=== PATIENT | female | born 1990 | race Caucasian/White ===

== ENCOUNTER 2021-09-02 09:09 | Outpatient (REF) | payer MEDICARE, MEDICAID, SELFPAY ==
[2021-09-02 09:35] LABS: MANUAL DIFF FLAG NO
[2021-09-02 09:57] LABS: Basophils Absolute Auto 0.1 X10*3/uL (0.0-0.2); Basophils Percent Auto 0.6 % (0-2); Eosinophils Absolute Auto 0.1 X10*3/uL (0.0-0.4); Eosinophils Percent Auto 1.3 % (0-4); Hematocrit 38.6 % (37.0-47.0); Hemoglobin 12.1 g/dl (12.0-16.0); Imm Gran Abs Auto 0.04 X10*3/uL (0.00-0.03); Imm Gran Pct Auto 0.5 % (0.0-0.4); Lymphocytes Absolute Auto 2.5 X10*3/uL (1.2-4.9); Lymphocytes Percent Auto 28.3 % (20-40); Mean Corpuscular HGB Conc 31.3 g/dl (31.0-35.0); Mean Corpuscular Hemoglobin 26.3 pg (27.0-33.0); Mean Corpuscular Volume 83.9 fL (80.0-98.0); Mean Platelet Volume 9.7 fL (9.4-12.3); Monocytes Absolute Auto 0.7 X10*3/uL (0.1-1.2); Monocytes Percent Auto 8.2 % (2-11); Neutrophils Absolute Auto 5.4 x10*3/uL (2.0-8.3); Neutrophils Percent Auto 61.1 % (45-73); Platelet Count 388 X10*3/uL (160-400); Red Cell Distribution Width 14.3 % (11.0-16.0); White Blood Count 8.8 X10*3/uL (4.8-10.8)
[2021-09-02 10:31] LABS: Alanine Aminotransferase 31 U/L (0-31); Alkaline Phosphatase 110 U/L (39-117); Anion Gap 12 (12-20); Aspartate Amino Transferase 16 U/L (5-31); Bilirubin Total 0.6 mg/dL (0.0-1.0); Blood Urea Nitrogen 9 mg/dL (9-16); Calcium 9.5 mg/dL (8.4-10.2); Carbon Dioxide 26 mmol/L (22-29); Chloride 105 mmol/L (96-108); Cholesterol 178 mg/dL; Estimated Glomerular Filt Rate > 60; Glucose Fasting 94 mg/dL (60-99); HDL Cholesterol 37 mg/dL; LDL Cholesterol Calculated 127 mg/dl; Potassium 4.4 mmol/L (3.3-5.1); Sodium 139 mmol/L (135-145); Triglycerides 73 mg/dL
[2021-09-02 10:53] LABS: TSH reflex Free T4 1.01 uIU/mL (0.32-4.0)
== END 2021-09-02 09:10 | disposition home or self-care (01) ==
LOC: HO.LAB 09:09
PROVIDERS: PCP Nurse Practitioner Family; Visit Provider Nurse Practitioner Family
DX: I10 Essential (primary) hypertension (principal); E78.00 Pure hypercholesterolemia, unspecified; F41.8 Other specified anxiety disorders; Z76.89 Persons encountering health services in other specified circumstances; Z87.898 Personal history of other specified conditions
CPT/HCPCS: 36415; 80053; 80061; 84443; 85025

== ENCOUNTER 2021-11-14 06:23 | Outpatient (REF) | payer MEDICARE, MEDICAID, SELFPAY ==
--- NOTE | 2021-11-14 06:15 | EEG_ITS ---
The waking background activity consists of 11 hertz posterior alpha frequency of moderate voltage intermixed anteriorly with low-voltage fast frequencies. Superimposed moderate voltage beta frequencies of 16-20 hertz are seen. Throughout the record, there are frequent paroxysmal discharges with spike wave discharges occurring in a generalized distribution with frontal accentuation and a 3 hertz to 3.5 hertz frequency. These bursts last from 1 to 3 seconds without any clinical symptoms. Paroxysmal discharges seen during both sleep and waking state. Photic stimulation is without activation. Hyperventilation was omitted. IMPRESSION: This is an abnormal EEG due to frequent generalized seizure discharges occurring in the bifrontal distribution with generalized spread. This EEG correlates with a generalized seizure disorder. MD CARLOS Anderson/MONSTER / [id number]
== END 2021-11-14 06:24 | disposition home or self-care (01) ==
LOC: HO.NEURO 06:23
PROVIDERS: PCP Nurse Practitioner Family; Visit Provider Nurse Practitioner Family
DX: Z87.898 Personal history of other specified conditions (principal)
CPT/HCPCS: 95819

== ENCOUNTER 2022-09-04 09:30 | Outpatient (REF) | payer MEDICARE, MEDICAID, SELFPAY ==
[2022-09-04 10:01] LABS: MANUAL DIFF FLAG NO
[2022-09-04 10:40] LABS: Basophils Absolute Auto 0.1 X10*3/uL (0.0-0.2); Basophils Percent Auto 0.6 % (0-2); Eosinophils Absolute Auto 0.2 X10*3/uL (0.0-0.4); Hematocrit 39.2 % (37.0-47.0); Hemoglobin 12.5 g/dl (12.0-16.0); Imm Gran Abs Auto 0.02 X10*3/uL (0.00-0.03); Imm Gran Pct Auto 0.2 % (0.0-0.4); Lymphocytes Absolute Auto 2.8 X10*3/uL (1.2-4.9); Lymphocytes Percent Auto 34.5 % (20-40); Mean Corpuscular HGB Conc 31.9 g/dl (31.0-35.0); Mean Corpuscular Hemoglobin 27.8 pg (27.0-33.0); Mean Corpuscular Volume 87.1 fL (80.0-98.0); Mean Platelet Volume 10.8 fL (9.4-12.3); Monocytes Absolute Auto 0.8 X10*3/uL (0.1-1.2); Monocytes Percent Auto 10.3 % (2-11); Neutrophils Absolute Auto 4.2 x10*3/uL (2.0-8.3); Neutrophils Percent Auto 52.4 % (45-73); Platelet Count 301 X10*3/uL (160-400); Red Cell Distribution Width 13.4 % (11.0-16.0); White Blood Count 8.1 X10*3/uL (4.8-10.8)
[2022-09-04 11:31] LABS: Alanine Aminotransferase 19 U/L (0-31); Alkaline Phosphatase 93 U/L (39-117); Anion Gap 14 (12-20); Aspartate Amino Transferase 14 U/L (5-31); Bilirubin Total 0.6 mg/dL (0.0-1.0); Blood Urea Nitrogen 9 mg/dL (9-16); Calcium 9.3 mg/dL (8.4-10.2); Carbon Dioxide 26 mmol/L (22-29); Chloride 105 mmol/L (96-108); Cholesterol 186 mg/dL; Estimated Glomerular Filt Rate > 60; Glucose Random 87 mg/dL (60-115); HDL Cholesterol 33 mg/dL; LDL Cholesterol Calculated 124 mg/dl; Potassium 4.9 mmol/L (3.3-5.1); Sodium 140 mmol/L (135-145); Total Protein 6.7 g/dL (6.5-8.0); Triglycerides 145 mg/dL
[2022-09-04 11:48] LABS: TSH reflex Free T4 1.61 uIU/mL (0.32-4.0)
== END 2022-09-04 09:31 | disposition home or self-care (01) ==
LOC: HO.LAB 09:30
PROVIDERS: PCP Nurse Practitioner Family; Visit Provider Nurse Practitioner Family
DX: Z13.29 Encounter for screening for other suspected endocrine disorder (principal); Z13.220 Encounter for screening for lipoid disorders; Z13.0 Encounter for screening for diseases of the blood and blood-forming organs and certain disorders involving the immune mechanism; E66.01 Morbid (severe) obesity due to excess calories
CPT/HCPCS: 36415; 80053; 80061; 84443; 85025

== ENCOUNTER → 2022-11-12 09:45 | Outpatient (BNVA) | payer MEDICARE, MEDICAID, SELFPAY | PROVIDERS: PCP Nurse Practitioner Family; Visit Provider Physician Assistant Surgical ==

== ENCOUNTER 2022-12-10 08:24 | Outpatient (AMB) | payer MEDICARE, MEDICAID, SELFPAY ==
--- NOTE | 2022-12-10 08:33 | MHC.OFFVISWM ---
Intake VS Expanded 12/10/22 08:38 Height 5 ft 3 in Weight 337 lb 12.8 oz BMI 59.8 BP 144/65 H Blood Pressure Location Rt brachial Blood Pressure Position Sitting Pulse 92 Pulse Source Pulse Oximeter Temp 97.4 F Temperature Source Temporal Artery Scan Pulse Oximetry 97 Oxygen Delivery Method Room Air Body Fat 171.2 Body Fat Percentage 50.7 Free Fat Mass 166.4 Muscle Mass 158.0 Visceral Mass 20.0 Water Mass 119.4 BMR 2,448 Intake Visit Reasons: (OV) [employer] SWL BMI 60.2 Allergies No Known Allergies [No Known Allergies*] Allergy (Verified 12/10/22 08:35) HPI HPI Comments History of Present Illness Details This is a 32year old woman who is here to start SWL program with SWL classes. Her goal is to lose about 200 lbs. She reports first being concerned about her weight over the last year. She has tried multiple methods of weight loss including dofferent diet apps without permanent results. She lives alone. She is unemployed, on disability due to seizures, she does drive. She wakes at: 7:30am bed at 11 pm. Breakfast: Gatorade in am with meds. skips breakfast every day. 10 am - coffee with cream and extra sugar - DD 1pm - another coffee 5pm- - another coffee Lunch: 12pm - Fast food every other day - whopper and fries and medium Sprite. OR chicken shani salad from pizzeria Dinner: skips dinner 2d/ week. If eats, rice/chicken or pork chops - never has vegetables - her mother cooks. water After dinner: nothing Other snacks: none Liquids: Soda every day, sweetened drinks every day Alcohol intake: 2 tiems per year, tobacco: none, marijuana: couple times per year Exercise: has PF membersip - went once so far. treadmill - speed 5-6, incline 0, 15 minutes - burned 6 calories Last mammogram: never Last pap smear: needs appointment control method:not needed DASHA: 2 ESS:2 GERD:0 QOL:69 PFS Medical History Cervical cancer screening declined Morbid obesity with BMI of 50.0-59.9, adult Surgical History H/O right knee surgery History of cholecystectomy Hx of tonsillectomy Family History Paternal Uncle Heart disease Maternal Aunt Depression Other Diabetes mellitus FH: mental illness Substance abuse Social History (Updated 09/04/22 @ 09:11 by LEONID Nieves) Housing: House Patient Tobacco Use Status: Never used Tobacco e-Cigarette/Vaping Use: Never Used Second Hand Smoke Exposure: No Substance Use Type: Marijuana service: No Current occupational status: disabled Current occupational exposures/hazards: No Cognitive needs: No Hearing needs: No Vision needs: No Physical Exam Vital Signs: Last Vital Signs Temp 97.4 F 12/10/22 08:38 Pulse 92 12/10/22 08:38 Pulse Ox 97 12/10/22 08:38 Oxygen Delivery Method Room Air 12/10/22 08:38 BMI result Body Mass Index 59.8 Const General: cooperative, no acute distress and well developed Nutritional Appearance: obese Orientation/consciousness: patient oriented x3 HEENT Head: Yes normal to inspection Neck Neck: Yes normal visual inspection Thyroid: Thyroid normal Resp Effort & Inspection: normal respiratory effort Auscultation: clear to auscultation bilaterally Cardio Rate: regular rate Rhythm: regular rhythm Heart sounds: S1 normal heart sound present, S2 normal heart sound present and no murmurs GI Other: laparoscopic incisions upper abd Inspection: No distended and Yes obesity Palpation (GI): Soft to palpation, nontender and no guarding Skin General skin exam: no rashes or lesions noted and other (warm and dry) Wounds: no wounds Hair: normal Neuro General: patient oriented x3 Extrem General: Yes no pedal edema and Yes no calf tenderness Psych Attitude: cooperative Thought process: Normal thought process present Thought content: Normal thought content present Insight: Good insight present (Psych) Judgement: Good judgement present (Psych) Assessment & Plan Assessment & Plan (1) Morbid obesity with BMI of 50.0-59.9, adult: Code(s): E66.01 - Morbid (severe) obesity due to excess calories; Z68.43 - Body mass index [BMI] 50.0-59.9, adult Plan: This is a 32 yo woman with morbid obesity and epilepsy who will start SWL program to prepare for bariatric surgery. Blood work, h pylori , CXR, ECG, Abd ULS and UGI have been ordered. She is being scheduled for RD and BH initial consultations. She will start SWL classes and watch at 3 classes before her next appt with Enma. Decrease sodium intake due to elevated BP. 1. Adequate sleep of 8 hours per night discussed 2. Healthy meal plan - stop skipping meals and stop all sweetened drinks, stop ALL fast food, must start to eat vegetables All meals/MR's need to take 20 minutes to complete 9 am - 30 gram shake 10 am - coffee with 2% milk and no sugar 12 pm - 30 gram shake 3 pm- bar or yogurt 6 pm- dinner of 6 oz lean protein, 6 -8 oz vegetable, 1 serving fruit Exercise - Cardio 4 d week = treadmill at speed 3.0, incline 2 - 6 - to burn 350 calories The importance of avoiding and breast feeding for at least 18 months after bariatric surgery was discussed in the information session and was reinforced today. NEEDS feed adviser exam. Pt will purchase body composition analyzer (recommended list given to patient) and weight herself weekly. Next appt with me in 3 weeks. Text me with any questions and weekly weights. Patient is morbidly obese and is not considered stable at this time.?I spent a total of 60 minutes reviewing/updating records, examining the patient and counseling the patient on weight management as detailed above. (2) Pre-op evaluation: Code(s): Z01.818 - Encounter for other preprocedural examination (3) Hyperlipemia, fat-induced: Code(s): E78.49 - Other hyperlipidemia (4) Epilepsy: Code(s): G40.909 - Epilepsy, unspecified, not intractable, without status epilepticus Orders: Orders Vitamin B12 and Folate Today E66.01 - Morbid (severe) obesity due to excess calories, G40.909 - Epilepsy, unspecified, not intractable, without status epilepticus, Z01.818 - Encounter for other preprocedural examination, Z68.43 - Body mass index [BMI] 50.0-59.9, adult Comprehensive Met. Panel Today E66.01 - Morbid (severe) obesity due to excess calories, G40.909 - Epilepsy, unspecified, not intractable, without status epilepticus, Z01.818 - Encounter for other preprocedural examination, Z68.43 - Body mass index [BMI] 50.0-59.9, adult C Reactive Protein Today E66.01 - Morbid (severe) obesity due to excess calories, G40.909 - Epilepsy, unspecified, not intractable, without status epilepticus, Z01.818 - Encounter for other preprocedural examination, Z68.43 - Body mass index [BMI] 50.0-59.9, adult Ferritin Today E66.01 - Morbid (severe) obesity due to excess calories, G40.909 - Epilepsy, unspecified, not intractable, without status epilepticus, Z01.818 - Encounter for other preprocedural examination, Z68.43 - Body mass index [BMI] 50.0-59.9, adult Hemoglobin A1c Today E66.01 - Morbid (severe) obesity due to excess calories, G40.909 - Epilepsy, unspecified, not intractable, without status epilepticus, Z01.818 - Encounter for other preprocedural examination, Z68.43 - Body mass index [BMI] 50.0-59.9, adult Insulin Today E66.01 - Morbid (severe) obesity due to excess calories, G40.909 - Epilepsy, unspecified, not intractable, without status epilepticus, Z01.818 - Encounter for other preprocedural examination, Z68.43 - Body mass index [BMI] 50.0-59.9, adult IRON PROFILE Today E66.01 - Morbid (severe) obesity due to excess calories, G40.909 - Epilepsy, unspecified, not intractable, without status epilepticus, Z01.818 - Encounter for other preprocedural examination, Z68.43 - Body mass index [BMI] 50.0-59.9, adult Lipid Panel Today E66.01 - Morbid (severe) obesity due to excess calories, G40.909 - Epilepsy, unspecified, not intractable, without status epilepticus, Z01.818 - Encounter for other preprocedural examination, Z68.43 - Body mass index [BMI] 50.0-59.9, adult PTHI Today E66.01 - Morbid (severe) obesity due to excess calories, G40.909 - Epilepsy, unspecified, not intractable, without status epilepticus, Z01.818 - Encounter for other preprocedural examination, Z68.43 - Body mass index [BMI] 50.0-59.9, adult TSH reflex Free T4 Today E66.01 - Morbid (severe) obesity due to excess calories, G40.909 - Epilepsy, unspecified, not intractable, without status epilepticus, Z01.818 - Encounter for other preprocedural examination, Z68.43 - Body mass index [BMI] 50.0-59.9, adult Vitamin A Today E66.01 - Morbid (severe) obesity due to excess calories, G40.909 - Epilepsy, unspecified, not intractable, without status epilepticus, Z01.818 - Encounter for other preprocedural examination, Z68.43 - Body mass index [BMI] 50.0-59.9, adult Vitamin B1 Today E66.01 - Morbid (severe) obesity due to excess calories, G40.909 - Epilepsy, unspecified, not intractable, without status epilepticus, Z01.818 - Encounter for other preprocedural examination, Z68.43 - Body mass index [BMI] 50.0-59.9, adult Vitamin D 25-OH Total Today E66.01 - Morbid (severe) obesity due to excess calories, G40.909 - Epilepsy, unspecified, not intractable, without status epilepticus, Z01.818 - Encounter for other preprocedural examination, Z68.43 - Body mass index [BMI] 50.0-59.9, adult Zinc Today E66.01 - Morbid (severe) obesity due to excess calories, G40.909 - Epilepsy, unspecified, not intractable, without status epilepticus, Z01.818 - Encounter for other preprocedural examination, Z68.43 - Body mass index [BMI] 50.0-59.9, adult ECG 12 lead EKG Today E66.01 - Morbid (severe) obesity due to excess calories, G40.909 - Epilepsy, unspecified, not intractable, without status epilepticus, Z01.818 - Encounter for other preprocedural examination, Z68.43 - Body mass index [BMI] 50.0-59.9, adult FL upper GI w air Today E66.01 - Morbid (severe) obesity due to excess calories, G40.909 - Epilepsy, unspecified, not intractable, without status epilepticus, Z01.818 - Encounter for other preprocedural examination, Z68.43 - Body mass index [BMI] 50.0-59.9, adult Complete Blood Count Auto Diff Today E66.01 - Morbid (severe) obesity due to excess calories, G40.909 - Epilepsy, unspecified, not intractable, without status epilepticus, Z01.818 - Encounter for other preprocedural examination, Z68.43 - Body mass index [BMI] 50.0-59.9, adult H Pylori Breath Test Today E66.01 - Morbid (severe) obesity due to excess calories, G40.909 - Epilepsy, unspecified, not intractable, without status epilepticus, Z01.818 - Encounter for other preprocedural examination, Z68.43 - Body mass index [BMI] 50.0-59.9, adult US abdomen comp w elastography Today E66.01 - Morbid (severe) obesity due to excess calories, G40.909 - Epilepsy, unspecified, not intractable, without status epilepticus, Z01.818 - Encounter for other preprocedural examination, Z68.43 - Body mass index [BMI] 50.0-59.9, adult XR chest 2V Today E66.01 - Morbid (severe) obesity due to excess calories, G40.909 - Epilepsy, unspecified, not intractable, without status epilepticus, Z01.818 - Encounter for other preprocedural examination, Z68.43 - Body mass index [BMI] 50.0-59.9, adult Referrals Behavioral Health Referral E66.01 - Morbid (severe) obesity due to excess calories, G40.909 - Epilepsy, unspecified, not intractable, without status epilepticus, Z01.818 - Encounter for other preprocedural examination, Z68.43 - Body mass index [BMI] 50.0-59.9, adult Nutrition/Dietitian Referral E66.01 - Morbid (severe) obesity due to excess calories, G40.909 - Epilepsy, unspecified, not intractable, without status epilepticus, Z01.818 - Encounter for other preprocedural examination, Z68.43 - Body mass index [BMI] 50.0-59.9, adult Coding Level of Care Code New Pt Level 5 (30100) Diagnoses Morbid obesity with BMI of 50.0-59.9, adult E66.01; Z68.43 Pre-op evaluation Z01.818 Hyperlipemia, fat-induced E78.49 Epilepsy G40.909
[2022-12-10 08:38] VITALS: BP 144/65; PULSE 92; TEMP 36.3; O2SAT 97; BMI 59.8
== END 2022-12-10 09:33 | disposition home or self-care (01) ==
PROVIDERS: PCP Nurse Practitioner Family; Visit Provider Physician Assistant
DX: E66.01 Morbid (severe) obesity due to excess calories (principal); Z68.43 Body mass index [BMI] 50.0-59.9, adult; E78.49 Other hyperlipidemia; G40.909 Epilepsy, unspecified, not intractable, without status epilepticus; Z01.818 Encounter for other preprocedural examination
CPT/HCPCS: 99205

== ENCOUNTER → 2022-12-10 08:24 | Outpatient (BNVA) | payer MEDICARE, MEDICAID, SELFPAY | PROVIDERS: PCP Nurse Practitioner Family; Visit Provider Physician Assistant | DX: Z01.818 Encounter for other preprocedural examination (principal); E66.01 Morbid (severe) obesity due to excess calories; Z68.43 Body mass index [BMI] 50.0-59.9, adult; E78.49 Other hyperlipidemia; G40.909 Epilepsy, unspecified, not intractable, without status epilepticus; Z11.0 Encounter for screening for intestinal infectious diseases | CPT/HCPCS: 99202; 99211 ==

== ENCOUNTER 2022-12-12 08:52 | Outpatient (REF) | payer MEDICARE, MEDICAID, SELFPAY ==
[2022-12-12 16:20] LABS: H Pylori Breath Test Negative (Negative)
== END 2022-12-12 08:53 | disposition home or self-care (01) ==
LOC: HO.LNP 08:52
PROVIDERS: Visit Provider Physician Assistant
DX: Z01.818 Encounter for other preprocedural examination (principal); E66.01 Morbid (severe) obesity due to excess calories; Z68.43 Body mass index [BMI] 50.0-59.9, adult; G40.909 Epilepsy, unspecified, not intractable, without status epilepticus
CPT/HCPCS: 83013

== ENCOUNTER 2022-12-13 09:01 | Outpatient (REF) | payer OTHER, SELFPAY ==
[2022-12-13 09:24] LABS: MANUAL DIFF FLAG NO
[2022-12-13 10:26] LABS: Basophils Percent Auto 0.5 % (0-2); Eosinophils Absolute Auto 0.1 X10*3/uL (0.0-0.4); Eosinophils Percent Auto 1.6 % (0-4); Hematocrit 39.5 % (37.0-47.0); Hemoglobin 12.5 g/dl (12.0-16.0); Imm Gran Abs Auto 0.03 X10*3/uL (0.00-0.03); Imm Gran Pct Auto 0.4 % (0.0-0.4); Lymphocytes Absolute Auto 2.1 X10*3/uL (1.2-4.9); Lymphocytes Percent Auto 27.3 % (20-40); Mean Corpuscular HGB Conc 31.6 g/dl (31.0-35.0); Mean Corpuscular Hemoglobin 27.4 pg (27.0-33.0); Mean Corpuscular Volume 86.6 fL (80.0-98.0); Mean Platelet Volume 10.6 fL (9.4-12.3); Monocytes Absolute Auto 0.8 X10*3/uL (0.1-1.2); Monocytes Percent Auto 9.8 % (2-11); Neutrophils Absolute Auto 4.6 x10*3/uL (2.0-8.3); Neutrophils Percent Auto 60.4 % (45-73); Platelet Count 342 X10*3/uL (160-400); Red Blood Count 4.56 X10*6/uL (4.20-5.50); Red Cell Distribution Width 14.1 % (11.0-16.0); White Blood Count 7.7 X10*3/uL (4.8-10.8)
[2022-12-13 10:52] LABS: Estimated Average Glucose 91 mg/dL; Hemoglobin A1c % 4.8 %
[2022-12-13 11:12] LABS: Alanine Aminotransferase 54 U/L (0-31); Albumin Level 4.1 g/dL (3.5-5.0); Alkaline Phosphatase 82 U/L (39-117); Anion Gap 12 (12-20); Aspartate Amino Transferase 41 U/L (5-31); Bilirubin Total 0.7 mg/dL (0.0-1.0); Blood Urea Nitrogen 17 mg/dL (9-16); C Reactive Protein 1.72 mg/dL (< or = 0.50); Calcium 9.7 mg/dL (8.4-10.2); Carbon Dioxide 25 mmol/L (22-29); Chloride 106 mmol/L (96-108); Cholesterol 200 mg/dL; Estimated Glomerular Filt Rate > 60; Glucose Random 90 mg/dL (60-115); HDL Cholesterol 32 mg/dL; Iron 63 mcg/dL (30-160); LDL Cholesterol Calculated 138 mg/dl; Percent Iron Saturation 21 % (15-50); Potassium 3.8 mmol/L (3.3-5.1); Sodium 139 mmol/L (135-145); Total Iron Binding Capacity 306 mcg/dL (228-428); Total Protein 7.5 g/dL (6.5-8.0); Triglycerides 150 mg/dL; Unsaturated Iron Binding 243 ug/dL
[2022-12-13 11:35] LABS: Ferritin 78 ng/mL (10-122); Insulin 31 uU/mL (2-29); TSH reflex Free T4 1.35 uIU/mL (0.32-4.0)
[2022-12-13 11:57] LABS: Folate 12.2 ng/mL (> or = 4.0); Vitamin B12 426 pg/mL (200-900)
[2022-12-17 14:58] LABS: Calcium (PTHI) 9.5 mg/dL (8.6-10.2); PTHI 92 pg/mL (16-77)
[2022-12-18 14:58] LABS: Zinc 65 mcg/dL (60-130)
[2022-12-20 03:24] LABS: Vitamin A 36 mcg/dL (38-98)
[2022-12-21 11:12] LABS: Vitamin B1 7 nmol/L (8-30)
== END 2022-12-13 09:02 | disposition home or self-care (01) ==
LOC: HO.LAB 09:01
PROVIDERS: PCP Nurse Practitioner Family; Visit Provider Physician Assistant
DX: Z01.818 Encounter for other preprocedural examination (principal); E66.01 Morbid (severe) obesity due to excess calories; Z68.41 Body mass index [BMI] 40.0-44.9, adult; G43.909 Migraine, unspecified, not intractable, without status migrainosus
CPT/HCPCS: 36415; 80053; 80061; 82306; 82607; 82728; 82746; 83036; 83525; 83540; 83970; 84425; 84443; 84590; 84630; 85025; 86140

== ENCOUNTER 2022-12-18 10:17 | Outpatient (REF) | payer OTHER, SELFPAY ==
--- NOTE | ~2022-12-18 | XR_ITS ---
EXAMINATION: XR CHEST CLINICAL INFORMATION: Morbid/severe obesity due to excess calories COMPARISON: None available. TECHNIQUE: 2 views of the chest were obtained. FINDINGS: No significant abnormality is noted involving the heart, lungs, mediastinum, bony thorax or soft tissues. XR/XR chest 2V IMPRESSION: Unremarkable chest examination.
--- NOTE | 2022-12-18 10:22 | ECG_ITS ---
Test Reason : MORBID OBESITY Blood Pressure : / mmHG Vent. Rate : 094 BPM Atrial Rate : 094 BPM P-R Int : 148 ms QRS Dur : 078 ms QT Int : 362 ms P-R-T Axes : 031 009 014 degrees QTc Int : 452 ms Normal sinus rhythm Normal ECG When compared with ECG of 17-JUL-2013 01:28, No significant change was found Referred By: Sia Ashley Electronically Signed By:JANET MCGILL MD
== END 2022-12-18 10:18 | disposition home or self-care (01) ==
LOC: HO.XRAY 10:17
PROVIDERS: PCP Nurse Practitioner Family; Visit Provider Physician Assistant
DX: Z01.818 Encounter for other preprocedural examination (principal); E66.01 Morbid (severe) obesity due to excess calories; Z68.43 Body mass index [BMI] 50.0-59.9, adult; G40.909 Epilepsy, unspecified, not intractable, without status epilepticus
CPT/HCPCS: 71046; 93005

== ENCOUNTER → 2022-12-18 10:22 | Outpatient (BNV) | payer OTHER, SELFPAY | PROVIDERS: PCP Nurse Practitioner Family; Visit Provider Internal Medicine Cardiovascular Disease | DX: E66.01 Morbid (severe) obesity due to excess calories (principal) | CPT/HCPCS: 93010 ==

== ENCOUNTER 2022-12-19 09:09 | Outpatient (REF) | payer OTHER, SELFPAY ==
--- NOTE | ~2022-12-19 | US_ITS ---
EXAMINATION: US COMPLETE ABDOMEN WITH LIVER ELASTOGRAPHY CLINICAL INFORMATION: Obesity COMPARISON: Previous ultrasound June 2013 and liver MRI June 2013 TECHNIQUE: Real-time imaging of the abdominal viscera. Noninvasive ultrasound liver fibrosis assessment is performed using Fletcher ElastPQ point quantification shear wave elastography (2D-SWE) with a C5-2 MHz transducer. Multiple elastography samples are obtained. FINDINGS: PANCREAS: Normal. ABDOMINAL AORTA: The proximal, middle aortic segments are normal in caliber. The distal abdominal aorta is not well visualized. INFERIOR VENA CAVA: Visualized portions are normal. LIVER: Slightly enlarged echogenic liver. The liver is normal in contour. No focal lesion or intrahepatic biliary duct dilatation. The right lobe measures 18 cm in length. The left lobe measures 13 cm in length. Portal flow is normal/hepatopedal Shear wave liver elastography median stiffness is 1.23 m/s (reference: normal median stiffness is 1.3 m/s or less). IQR/median stiffness to assess sampling precision is 0.19 (reference: good quality data set is IQR/median stiffness of 0.15 or less). GALLBLADDER: Surgically removed. COMMON BILE DUCT: Normal in caliber measuring 0.4 cm in diameter. RIGHT KIDNEY: Normal. No hydronephrosis. No renal calculi or focal parenchymal lesions. The kidney measures 11 cm in maximum dimension. LEFT KIDNEY: Normal. No hydronephrosis. No renal calculi or focal parenchymal lesions. The kidney measures 11 cm in maximum dimension. SPLEEN: Normal. The spleen measures 12 cm in maximum dimension. FREE FLUID: None. US/US abdomen comp w elastography IMPRESSION: 1. Impression: Slightly enlarged echogenic liver probably representing fatty infiltration. Limited visualization of the distal abdominal aorta. 2. Liver elastography: Limited due to sampling error. REFERENCE: Society of Radiologists in Ultrasound Liver Stiffness Thresholds (2020): LIVER STIFFNESS THRESHOLDS: *Liver Stiffness equal or less than 1.3 m/s: High probability of being normal. *Liver Stiffness less than 1.7 m/s: In the absence of other known clinical signs, rules out compensated advanced chronic liver disease. *Liver Stiffness 1.7-2.1 m/s: Suggestive of compensated advanced chronic liver disease but need further test for confirmation. *Liver Stiffness over 2.1 m/s: Rules in compensated advanced chronic liver disease. *Liver Stiffness over 2.4 m/s: Suggestive of clinically significant portal hypertension. QUALITY OF DATA SET: *IQR/Median value equal or less than 0.15 implies a quality data set. *IQR/Median value over 0.15 implies a poor quality data set. SIGNIFICANT CHANGE FROM PRIOR EXAM: Significant change if liver stiffness measurement is 10% or greater from prior exam. OTHER CONSIDERATIONS: The stage of liver fibrosis may be overestimated in the setting of acute hepatitis, liver inflammation, elevated liver function tests, hepatic vascular congestion, obstructive cholestasis, non-fasting state, and infiltrative diseases such as amyloidosis and lymphoma. In some patients with NAFLD, the liver stiffness thresholds for compensated advanced chronic liver disease may be lower. In causes other than viral hepatitis and NAFLD, liver stiffness thresholds are not well established.
--- NOTE | ~2022-12-19 | FL_ITS ---
EXAMINATION: XR FLUOROSCOPY UPPER GI WITH AIR CLINICAL INFORMATION: Obesity COMPARISON: None available. TECHNIQUE: Upper GI was performed using thin and thick barium and effervescent granules FINDINGS: Esophageal motility is normal. No significant esophageal hernia or reflux. The stomach and duodenum are normal. No fold thickening, mass, ulcer or stricture. FLUOROSCOPY TIME: 0.3 minutes DAP: 4.7 wynn per centimeter squared. Total dose 15.5 mgy. 18 saved fluoroscopic images FL/FL upper GI w air IMPRESSION: Unremarkable examination.
== END 2022-12-19 09:10 | disposition home or self-care (01) ==
LOC: HO.US 09:09
PROVIDERS: PCP Nurse Practitioner Family; Visit Provider Physician Assistant
DX: Z01.818 Encounter for other preprocedural examination (principal); E66.01 Morbid (severe) obesity due to excess calories; G40.909 Epilepsy, unspecified, not intractable, without status epilepticus; Z68.43 Body mass index [BMI] 50.0-59.9, adult
CPT/HCPCS: 74246; 76705; 76981

== ENCOUNTER → 2022-12-19 09:10 | Outpatient (BNV) | payer OTHER, SELFPAY | PROVIDERS: PCP Nurse Practitioner Family; Visit Provider Radiology Diagnostic Radiology | DX: Z01.818 Encounter for other preprocedural examination (principal) | CPT/HCPCS: 74246 ==

== ENCOUNTER → 2022-12-24 10:17 | Outpatient (BNVA) | payer OTHER, SELFPAY | PROVIDERS: PCP Nurse Practitioner Family; Visit Provider Dietitian, Registered | DX: E66.9 Obesity, unspecified (principal) | CPT/HCPCS: 97802 ==

== ENCOUNTER 2022-12-26 13:53 | Outpatient (AMB) | payer MEDICARE, MEDICAID, SELFPAY ==
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
== END 2022-12-26 14:49 | disposition home or self-care (01) ==
PROVIDERS: PCP Nurse Practitioner Family; Visit Provider Counselor Mental Health
DX: F41.8 Other specified anxiety disorders (principal); G40.909 Epilepsy, unspecified, not intractable, without status epilepticus; E66.01 Morbid (severe) obesity due to excess calories; Z68.43 Body mass index [BMI] 50.0-59.9, adult
CPT/HCPCS: 90791

== ENCOUNTER → 2022-12-26 13:53 | Outpatient (BNVA) | payer MEDICARE, MEDICAID, SELFPAY | PROVIDERS: PCP Nurse Practitioner Family; Visit Provider Counselor Mental Health ==

== ENCOUNTER 2023-01-03 08:41 | Outpatient (AMB) | payer MEDICARE, MEDICAID, SELFPAY ==
--- NOTE | 2023-01-03 08:49 | MHC.OFFVISWM ---
Intake VS Expanded 01/03/23 09:01 Height 5 ft 3 in Weight 330 lb 12.8 oz BMI 58.6 BP 125/59 L Blood Pressure Location Rt brachial Blood Pressure Position Sitting Pulse 87 Pulse Source Pulse Oximeter Temp 97.8 F Temperature Source Temporal Artery Scan Pulse Oximetry 98 Oxygen Delivery Method Room Air Body Fat 163.2 Body Fat Percentage 49.3 Free Fat Mass 167.6 Muscle Mass 159.2 Visceral Mass 19.0 Water Mass 120.2 BMR 2,450 Intake Visit Reasons: (OV) F/U SWL Allergies No Known Allergies [No Known Allergies*] Allergy (Verified 01/03/23 08:58) HPI HPI Comments History of Present Illness Details This is the patients second appt for SWL. Starting weight was 339.8 lbs. TBWL is 9 lbs or 2.6% TBWL. 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 Meal plan: wakes up at 6:30 8am - Breakfast - skips 1 d/ week. Has an apple or a protein bar 12 pm - bowl of broccoli, water 3pm- protein shake- Premeir 6pm - chicken cesear salad from Pizza restaurant OR broccoli with air fried chicken coffee - once per week with [facility] only Exercise plan: bought treadmill for her home. treadmill -speed 2.5, incline 0- 2.5, over 30 minutes - 120 calories. UE, and abd exercises - 4-5 d/ week Pre op work up completed as follows: SWL classes - appts - cleared, Radha following up appts - follow up NOT scheduled H pylori - negative Labs - done, vitamin defic and elevated LFT's CXR and ECG - both normal ULS -liver steatosis , L 19cm, R 13 cms UGI - normal PFSH Medical History Cervical cancer screening declined Morbid obesity with BMI of 50.0-59.9, adult Surgical History H/O right knee surgery History of cholecystectomy Hx of tonsillectomy Family History Paternal Uncle Heart disease Maternal Aunt Depression Other Diabetes mellitus FH: mental illness Substance abuse Social History (Updated 09/04/22 @ 09:11 by LEONID Nieves) Housing: House Patient Tobacco Use Status: Never used Tobacco e-Cigarette/Vaping Use: Never Used Second Hand Smoke Exposure: No Substance Use Type: Marijuana service: No Current occupational status: disabled Current occupational exposures/hazards: No Cognitive needs: No Hearing needs: No Vision needs: No Assessment & Plan Assessment & Plan (1) Morbid obesity with BMI of 50.0-59.9, adult: Code(s): E66.01 - Morbid (severe) obesity due to excess calories; Z68.43 - Body mass index [BMI] 50.0-59.9, adult Plan: SWL followup, good start with 9 lbs or 2.6% TBWL. Needs many chagnes to meal plan and does not have great understanding yet of nutritional requirements. Stop skipping meals, add protien to all meal times, needs varitey of protiens and vegetables and to learn how to prepare them. She agreed that she can adhere to the following plan. 8am - shake 11am - bar 2ppm - shake 6pm- dinner - variety and protien 9pm - bar treadmill - 2.5, incline - 1 - 5, 300 calories Appt with Enma scheduled today, pt reminded to finish all SWL classes before this. Next appt with me in 3 weeks, texts encouraged Patient is morbidly obese and is not considered stable at this time. I spent 30minutes in total with patient reviewing/updating records, examining the patient and counseling the patient on weight management as detailed above. Coding Level of Care Code Est Pt Level 4 (42357) Diagnoses Morbid obesity with BMI of 50.0-59.9, adult E66.01; Z68.43
[2023-01-03 09:01] VITALS: BP 125/59; PULSE 87; TEMP 36.6; O2SAT 98; BMI 58.6
== END 2023-01-03 09:33 | disposition home or self-care (01) ==
PROVIDERS: PCP Nurse Practitioner Family; Visit Provider Physician Assistant
DX: E66.01 Morbid (severe) obesity due to excess calories (principal); Z68.43 Body mass index [BMI] 50.0-59.9, adult
CPT/HCPCS: 99214

== ENCOUNTER → 2023-01-03 08:41 | Outpatient (BNVA) | payer MEDICARE, MEDICAID, SELFPAY | PROVIDERS: PCP Nurse Practitioner Family; Visit Provider Physician Assistant | DX: E66.01 Morbid (severe) obesity due to excess calories (principal); Z68.43 Body mass index [BMI] 50.0-59.9, adult | CPT/HCPCS: 99212 ==

== ENCOUNTER 2023-01-23 12:56 | Outpatient (AMB) | payer MEDICARE, MEDICAID, SELFPAY ==
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
== END 2023-01-24 09:35 | disposition home or self-care (01) ==
PROVIDERS: PCP Nurse Practitioner Family; Visit Provider Counselor Mental Health
DX: F41.8 Other specified anxiety disorders (principal); G40.909 Epilepsy, unspecified, not intractable, without status epilepticus; E66.01 Morbid (severe) obesity due to excess calories; Z68.43 Body mass index [BMI] 50.0-59.9, adult
CPT/HCPCS: 90832

== ENCOUNTER → 2023-01-23 12:56 | Outpatient (BNVA) | payer MEDICARE, MEDICAID, SELFPAY | PROVIDERS: PCP Nurse Practitioner Family; Visit Provider Counselor Mental Health ==

== ENCOUNTER 2023-01-24 09:23 | Outpatient (AMB) | payer MEDICARE, MEDICAID, SELFPAY ==
--- NOTE | 2023-01-24 09:31 | MHC.OFFVISWM ---
Intake VS Expanded 01/24/23 09:37 Height 5 ft 3 in Weight 330 lb 9.6 oz BMI 58.6 Blood Pressure Location Rt brachial Blood Pressure Position Sitting Pulse 101 H Pulse Source Pulse Oximeter Temp 97.4 F Temperature Source Temporal Artery Scan Pulse Oximetry 95 Oxygen Delivery Method Room Air Body Fat 164.0 Body Fat Percentage 49.6 Free Fat Mass 166.4 Muscle Mass 158.0 Visceral Mass 19.0 Water Mass 119.4 BMR 2,436 Intake Visit Reasons: (OV) F/U SWL Allergies No Known Allergies [No Known Allergies*] Allergy (Verified 01/03/23 08:58) HPI HPI Comments History of Present Illness Details [facility] follow up, IRON BENDER weight of 339.8 lbs, TBWL is 9 lbs . No further weight loss from last appt. Has n ot been able to follow meal plan due to personal stressors and loss of appetite due to depression. wakes at 6am - takes meds at 6:30am 6:30 am - 2 boiled eggs 10 am - shake 12:30 pm - bar 2:30 - shake 7pm - dinner- grilled chicken corn on the cob water. exercise - treadmill - was doing 4 d/ week - hurt her knee. speed 4.0, incline 3.5 for 2 hours - calories ? Has neurolgoy appt May 2023. Pre op work up completed as follows: [facility] classes -? 09/01 appts? - cleared, Radha? following up?on 02/13 appts - follow up scheduled for 02/04 H pylori - negative Labs - done, vitamin defic and elevated LFT's CXR and ECG - both normal ULS -liver steatosis , L 19cm, R 13 cms UGI - normal PFSH Medical History (Updated 01/24/23 @ 09:59 by Sia Ashley PA-C) Abnormal EEG Cervical cancer screening declined Morbid obesity with BMI of 50.0-59.9, adult Surgical History H/O right knee surgery History of cholecystectomy Hx of tonsillectomy Family History Paternal Uncle Heart disease Maternal Aunt Depression Other Diabetes mellitus FH: mental illness Substance abuse Social History (Reviewed 01/03/23 @ 08:58 by PAULO Lopez Housing: House Patient Tobacco Use Status: Never used Tobacco e-Cigarette/Vaping Use: Never Used Second Hand Smoke Exposure: No Substance Use Type: Marijuana service: No Current occupational status: disabled Current occupational exposures/hazards: No Cognitive needs: No Hearing needs: No Vision needs: No Physical Exam Vital Signs: Last Vital Signs Temp 97.4 F 01/24/23 09:37 Pulse 101 H 01/24/23 09:37 Pulse Ox 95 01/24/23 09:37 Oxygen Delivery Method Room Air 01/24/23 09:37 BMI result Body Mass Index 58.6 Assessment & Plan Assessment & Plan (1) Morbid obesity with BMI of 50.0-59.9, adult: Code(s): E66.01 - Morbid (severe) obesity due to excess calories; Z68.43 - Body mass index [BMI] 50.0-59.9, adult Plan: Pt is havign a difficult time presently, her therapist is on maternaity leave and she is appreciating appts with Radha - says it helps her. She is doing fine with her meal plan - I asked her to change times to t 6;30, 10:30. 1:30, 4 pma nd 7pm for better intervals between meals. To help her remember to take her meds - if she takes them bid with both of her meals at 6:30 am and 7 pm may help her ot remember. Exercise- she was doing much more than I suggested and she hurt her knee. I have asked her to follow my recommendations for now and we can increase over time when she is better conditioned. Treadmill - speed 3.0, incline 2- 7 no more than 45 minutes, daily. Follow up appts reviewed with er, pre op work up completed. We discussed how we are not in any freeman, nor shoudl she be. The most important thing now is for her ot learn to take good care of herself. Next appt with me in 3 weeks. Patient is morbidly obese and is not considered stable at this time. I spent 30minutes in total with patient reviewing/updating records, examining the patient and counseling the patient on weight management as detailed above. (2) Epilepsy: Code(s): G40.909 - Epilepsy, unspecified, not intractable, without status epilepticus Coding Level of Care Code Est Pt Level 4 (11471) Diagnoses Morbid obesity with BMI of 50.0-59.9, adult E66.01; Z68.43 Epilepsy G40.909
[2023-01-24 09:37] VITALS: PULSE 101; TEMP 36.3; O2SAT 95; BMI 58.6
== END 2023-01-24 10:04 | disposition home or self-care (01) ==
PROVIDERS: PCP Nurse Practitioner Family; Visit Provider Physician Assistant
DX: E66.01 Morbid (severe) obesity due to excess calories (principal); Z68.43 Body mass index [BMI] 50.0-59.9, adult; G40.909 Epilepsy, unspecified, not intractable, without status epilepticus
CPT/HCPCS: 99214

== ENCOUNTER → 2023-01-24 09:23 | Outpatient (BNVA) | payer MEDICARE, MEDICAID, SELFPAY | PROVIDERS: PCP Nurse Practitioner Family; Visit Provider Physician Assistant | DX: E66.01 Morbid (severe) obesity due to excess calories (principal); Z68.43 Body mass index [BMI] 50.0-59.9, adult; G40.909 Epilepsy, unspecified, not intractable, without status epilepticus | CPT/HCPCS: 99212 ==

== ENCOUNTER 2023-10-16 14:50 | Outpatient (AMB) | payer OTHER, MEDICAID, SELFPAY ==
--- NOTE | 2023-10-16 14:58 | MHC.PC.OV ---
Vital Signs 10/16/23 15:01 Height 5 ft 3 in Weight 340 lb 2 oz BMI 60.2 BP 130/72 Blood Pressure Location Lt brachial Position Sitting Pulse 99 Pulse Source Pulse Oximeter Pulse Oximetry (%) 97 Oxygen Delivery Method Room Air Intake Visit Reasons: establish care-former [facility] patient Intake Note: Patient is here today for a ALEXIA, possible PE. Support Representative Required: No Technician'S Helper: Not Required per policy Accompanied by: Self / Same As Patient Allergies No Known Allergies [No Known Allergies*] Allergy (Verified 10/29/23 15:53) Medication List - Last Reconciled 10/29/23 by Rodolfo Estevez MD divalproex 500 mg PO BID vitamin A palmitate 6,000 mcg (2 x 3,000 mcg (10,000 unit)) PO QWEEK 2 weeks Tobacco use date assessed: 10/16/23 Dental Screening Dental Screen Date: 10/16/23 Did you have a dental visit in the last 12 months?: No Did you have a dental problem in the last 6 months where you did not have access to dental care?: No Was dental information given to patient?: Patient has dentist HPI establish care-former [facility] patient HPI Details 32-year-old female presents to the office requesting an annual physical. [facility] Medical History Morbid obesity with BMI of 50.0-59.9, adult Cervical cancer screening declined Abnormal EEG Surgical History Hx of tonsillectomy H/O right knee surgery History of cholecystectomy Family History Paternal Uncle Heart disease Maternal Aunt Depression Other Diabetes mellitus FH: mental illness Substance abuse Social History Housing: House Alcohol intake: never Patient Tobacco Use Status: Never used Tobacco e-Cigarette/Vaping Use: Never Used Second Hand Smoke Exposure: No Substance Use Type: Marijuana service: No Current occupational status: disabled Current occupational exposures/hazards: No Cognitive needs: No Hearing needs: No Vision needs: No Questionnaire PHQ-9 Over the last 2 weeks, how often have you been bothered by any of the following problems? 1. Little interest or pleasure in doing things: not at all 2. Feeling down, depressed, or hopeless: not at all 3. Trouble falling or staying asleep, or sleeping too much: not at all 4. Feeling tired or having little energy: not at all 5. Poor appetite or overeating: not at all 6. Feeling bad about yourself - or that you are a failure or have let yourself or your family down: not at all 7. Trouble concentrating on things, such as reading the newspaper or watching television: not at all 8. Moving or speaking so slowly that other people could have noticed. Or the opposite - being so fidgety or restless that you have been moving around a lot more than usual: not at all 9. Thoughts that you would be better off or of hurting yourself in some way: not at all Total score: 0 Depression Screening Interpretation: Negative Depression Screening Done: Yes Source: Developed by Drs. Chad Gutierrez, Luda Smith, Johnathan Galeas and colleagues, with an educational alberto from [employer]. Thrive Questionnaire Date Thrive assessed: 10/16/23 I am a: Patient What is your living situation today?: I have a steady place to live Within the past 12 months, did the food you bought not last and you didn't have the money to get more?: Never true Within the past 12 months, did you worry whether your food would run out before you got money to buy more?: Never true Do you have trouble paying for medicines?: No Do you have trouble getting transportation to medical appointments?: No Do you have trouble paying your heating and electricity bill?: No Do you have trouble taking care of your child, family member or friend?: No Do you have trouble with day-to-day activities such as bathing, preparing meals, shopping, managing finances, etc.?: No Are you currently unemployed and looking for a job?: No Are you interested in more education?: No Currently or been in a relationship where the following occur: no concerns reported THRIVE Score: 0 AUDIT C Alcohol Use Questionnaire (AUDIT-C) 1. How often do you have a drink containing alcohol?: Never Total Score: 0 GABRIELA-7 AMB Questionnaire GABRIELA-7 Date GABRIELA - 7 assessed: 10/16/23 Feeling nervous, anxious, or on edge: 2 = More than half the days Not being able to stop or control worryin = Several days Worrying too much about different things: 1 = Several days Trouble relaxin = More than half the days Being so restless that it is hard to sit still: 0 = Not at all Becoming easily annoyed or irritable: 1 = Several days Feeling afraid as if something awful might happen: 0 = Not at all Total GABRIELA-7 score (0-4 normal; 5-9 mild; 10-14 moderate; 15-21 severe): 7 Source: Developed by Drs. Chad Gutierrez, Luda Smith, Johnathan Galeas and colleagues, with an educational alberto from [employer]. Physical exam (Primary Care) Vital Signs: Last Vital Signs Pulse 99 10/16/23 15:01 BP 130/72 10/16/23 15:01 Pulse Ox 97 10/16/23 15:01 Oxygen Delivery Method Room Air 10/16/23 15:01 BMI result Body Mass Index 60.2 BMI Assessment/Plan discussion: High (1 lb per week weight loss suggested.) BMI High, discussed plan: lifestyle, weight reduction and dietary Tobacco/Smoking Status: Tobacco use Status Tobacco use date assessed 10/16/23 10/16/23 15:08 Patient Tobacco Use Status Never used Tobacco 10/16/23 15:05 e-Cigarette/Vaping Use Never Used 10/16/23 15:05 PHQ-9: PHQ-9 Score PHQ-9: Total score 0 10/16/23 15:08 Depression Screening Interpretation: Negative Thrive Assessment: Date of Thrive Assessment Date Thrive assessed 10/16/23 10/16/23 15:08 Currently or been in a relationship where the following occur: no concerns reported Assessment and Plan Assessment & Plan (1) Epilepsy: Code(s): G40.909 - Epilepsy, unspecified, not intractable, without status epilepticus Plan: Continue current medications. (2) Morbid obesity with BMI of 50.0-59.9, adult: Code(s): E66.01 - Morbid (severe) obesity due to excess calories; Z68.43 - Body mass index [BMI] 50.0-59.9, adult Plan: Counseling on the importance of diet and exercise done. (3) Annual physical exam: Code(s): Z00.00 - Encounter for general adult medical examination without abnormal findings Plan: Blood work ordered. Will call with the results. Orders: Orders Thyroid Stimulating Hormone 10/17/23 G40.909 - Epilepsy, unspecified, not intractable, without status epilepticus Basic Metabolic Panel 10/17/23 G40.909 - Epilepsy, unspecified, not intractable, without status epilepticus Lipid Panel 10/17/23 G40.909 - Epilepsy, unspecified, not intractable, without status epilepticus Liver Panel 10/17/23 G40.909 - Epilepsy, unspecified, not intractable, without status epilepticus UA and rflx microscopic 10/17/23 G40.909 - Epilepsy, unspecified, not intractable, without status epilepticus Coding Level of Care Code Est Pt Prev Care 18-39y(41350) Diagnoses Epilepsy G40.909 Morbid obesity with BMI of 50.0-59.9, adult E66.01; Z68.43 Annual physical exam Z00.00
[2023-10-16 15:01] VITALS: BP 130/72; PULSE 99; O2SAT 97; BMI 60.2
== END 2023-10-16 15:55 | disposition home or self-care (01) ==
LOC: HO.HMGH 14:52
PROVIDERS: PCP Nurse Practitioner Family; Visit Provider Internal Medicine
DX: G40.909 Epilepsy, unspecified, not intractable, without status epilepticus (principal); E66.01 Morbid (severe) obesity due to excess calories; Z68.43 Body mass index [BMI] 50.0-59.9, adult; Z00.00 Encounter for general adult medical examination without abnormal findings
CPT/HCPCS: 99395

== ENCOUNTER 2023-10-17 09:37 | Outpatient (REF) | payer OTHER, SELFPAY ==
[2023-10-17 11:01] LABS: Alanine Aminotransferase 31 U/L (0-31); Albumin Level 3.8 g/dL (3.5-5.0); Alkaline Phosphatase 113 U/L (39-117); Anion Gap 13 (12-20); Aspartate Amino Transferase 14 U/L (5-31); Bilirubin Direct 0.1 mg/dL (0.0-0.5); Bilirubin Total 0.3 mg/dL (0.0-1.0); Blood Urea Nitrogen 8 mg/dL (9-16); Calcium 9.1 mg/dL (8.4-10.2); Carbon Dioxide 23 mmol/L (22-29); Chloride 108 mmol/L (96-108); Cholesterol 177 mg/dL (<200); Estimated Glomerular Filt Rate > 60; Glucose Random 114 mg/dL (60-115); HDL Cholesterol 33 mg/dL (>40); LDL Cholesterol Calculated 116 mg/dL (<100); Potassium 3.9 mmol/L (3.3-5.1); Sodium 140 mmol/L (135-145); Total Protein 7.2 g/dL (6.5-8.0); Triglycerides 144 mg/dL (<150)
[2023-10-17 11:44] LABS: Appearance Urine Cloudy; Color Urine Yellow; Glucose Urine UA Negative (Negative); Leukocyte Esterase Urine Trace (Negative); Nitrite Urine Negative (Negative); Specific Gravity - Urine 1.025 (1.005-1.025); UMIC TRIGGER UA YES; Urine Blood Negative (Negative); Urine Ketones Negative (Negative); Urine Protein Negative (Neg-Trace)
[2023-10-17 11:53] LABS: Bacteria Urine Trace (None Seen); Hyaline Casts Urine 0-2 /LPF (0-2); RBC Urine 0-2 /HPF (0-2); WBC Urine 0-5 /HPF (0-5)
== END 2023-10-17 09:38 | disposition home or self-care (01) ==
LOC: HO.LAB 09:37
PROVIDERS: PCP Internal Medicine; Visit Provider Internal Medicine
DX: G40.909 Epilepsy, unspecified, not intractable, without status epilepticus (principal)
CPT/HCPCS: 36415; 80048; 80061; 80076; 81001; 84443

== ENCOUNTER 2024-12-31 08:44 | Outpatient (AMB) | payer OTHER, SELFPAY ==
--- NOTE | 2024-12-31 08:46 | A.OFFVIS_ITS ---
Intake Visit Reasons: 6M /Sz Allergies No Known Allergies (No Known Allergies*) Allergy (Verified 12/31/24 08:52) Medication List - Last Reconciled 12/31/24 by Brooklyn Grover CNP divalproex 500 mg PO BID vitamin A palmitate 6,000 mcg (2 x 3,000 mcg (10,000 unit)) PO QWEEK 2 weeks HPI Comments Details: She was doing okay. No seizures or aura. No medication side effects. She was getting some occasional headaches, which seemed to be triggered by heat and humidity or bright lights. Some photophobia. No sonophobia, nausea, or vomiting. She was using Advil as needed which helped within 30 minutes. Sleep was okay. Mood was okay. Last seizure in 10/2020, at which time she had been off her medications for 2.5 years because she did not have insurance. Last seizure before this was on 04/11/2016 where she spaced out and mumbling for few seconds while off medications. Before that was in 04/2015. EEG reported below. Her last EEG shows frequent generalized epileptiform discharges lasting from 1-5 seconds. She was previously followed by Dr. Madera in [place]. She reports onset of seizures since . She spaces out and sometimes may pass out and be incontinent and has no recall. No eyewitness account is available. She previously reported fatigue, depression, stress and hallucinations, occasional headaches, loss of the smell and difficulty initiating and maintaining sleep. [facility] Medical History (Updated 12/31/24 @ 08:55 by Brooklyn Grover CNP) Epilepsy, unspecified, intractable, with status epilepticus Obesity Seizure disorder Morbid obesity with BMI of 50.0-59.9, adult Cervical cancer screening declined Abnormal EEG Surgical History Hx of tonsillectomy H/O right knee surgery History of cholecystectomy Family History Paternal Uncle Heart disease Maternal Aunt Depression Other Diabetes mellitus FH: mental illness Substance abuse Social History Housing: House Alcohol intake: never Patient Tobacco Use Status: Never used Tobacco e-Cigarette/Vaping Use: Never Used Second Hand Smoke Exposure: No Substance Use Type: Marijuana service: No Current occupational status: disabled Current occupational exposures/hazards: No Cognitive needs: No Hearing needs: No Vision needs: No Review of Systems Const Denies chills, Denies daytime sleepiness, Denies difficulty sleeping, Denies fatigue, Denies fever(s), Denies frequent falls, Reports headache(s), Denies increased appetite, Denies poor appetite, Denies snoring, Denies weakness, Denies weight gain and Denies weight loss Eyes Denies loss of vision ENT Denies vertigo, Denies dizziness, Reports headache(s) and Denies neck pain Card Denies chest pain at rest, Denies chest pain with activity, Denies syncope, Denies leg edema, Denies palpitations, Denies dyspnea and Denies dyspnea on e xertion Resp Denies cough, Denies dyspnea, Denies dyspnea on exertion and Denies snoring GI Denies abdominal pain, Denies constipation, Denies heartburn, Denies diarrhea and Denies nausea Denies urinary frequency, Denies urinary incontinence and Denies urinary urgency Musc Denies abnormal gait, Denies back pain, Denies myalgias, Denies arthralgias, Denies neck pain, Denies numbness and Denies tingling Neuro Denies abnormal gait, Denies vertigo, Denies dizziness, Denies syncope, Denies frequent falls, Reports headache(s), Denies lack of coordination, Denies loss of vision, Denies memory loss, Denies numbness, Denies Other visual disturbances, Denies restless legs, Denies seizure-like activity, Denies tingling, Denies paresthesias, Denies tremor(s) and Denies weakness Psych Denies anxiety, Denies depression, Denies auditory hallucinations, Denies memory loss and Denies visual hallucinations Endo Denies fatigue and Denies palpitations Physical Exam Const Other: General Appearance:? normal, in no acute distress. Heart:? S1, S2 normal, no murmurs. Lungs:? clear anteriorly and posteriorly. Musculoskeletal:? normal. Extremities:? no edema. Psych:? alert, oriented, cognitive function intact, cooperative with exam. Neuro Other: Abnormal Neurological Findings:?none.? Mental Status: alert and oriented X 3. Normal attention, orientation, memory, and affect. Cranial Nerves: Pupils are equal, round, and reactive to light. External ocular muscles are intact. Visual stephens are full, no ptosis. Face is symmetrical, no facial weakness or droop. Facial sensations are normal. Tongue protrudes in midline. Palate elevates symmetrically. Shoulder shrugging is normal Motor Examination: Normal muscle tone, bulk and strength. No atrophy or fasciculations. No drift of the extended upper extremities. DTR 2+. Plantars are flexor. Sensory Exam: Normal light touch, temperature, pinprick, vibration, and joint- position sensations. Rhomberg sign is absent. Coordination: No ataxia. No titubation. Obtnmo-rd-ocxp, fzrp-accx-eytc test, and rapid alternating movements were normal. Gait Exam: Within normal limits. Cerebellar Signs: Zdgwdr-ay-ktek is okay. Extrapyramidal System: No tremor, rigidity with normal facial expressions. No bradykinesia. No bradyphrenia. Normal arm swing and posture. No propulsion or retropulsion. Speech: Normal. No dysphasia or dysarthria. Results Reviewed Results Reviewed: 2012 EEG: genyanick Sz. 06/07/16. 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 Assessment & Plan Assessment & Plan (1) Seizure disorder: Code(s): G40.909 - Epilepsy, unspecified, not intractable, without status epilepticus Category: Medical Plan: Continue Depakote Tablet Delayed Release 500mg 1 tablet twice a day. (2) Migraine: Code(s): G43.909 - Migraine, unspecified, not intractable, without status migrainosus Category: Medical Qualifiers: Migraine type: migraine (< 15 days per month) without aura Status migrainosus presence: without status migrainosus Intractability: not intractable Qualified Code(s): G43.009 - Migraine without aura, not intractable, without status migrainosus Plan: May continue Advil as needed. Plan Meds tried: lamotrigine (reports side effects) Coding Level of Care Code Est Pt Level 4 (02179) Diagnoses Seizure disorder G40.909 Migraine without aura and without status migrainosus, not intractable G43.009 Migraine type: migraine (< 15 days per month) without aura Status migrainosus presence: without status migrainosus Intractability: not intractable
--- OUTSIDE RECORDS SUMMARY | 2024-12-31 09:00 | XMS_ITS | Patient Health Record ---
Demographics Address [address] [place] [address] Preferred Language en Marital Status Unknown Mandaen Affiliation Unknown Race Unknown Ethnic Group Refused to Report Author Organization [facility] Address [address] [place] [address] Care Team Providers Care Machines Technician Name Role Phone Bjorn (RETIRED) Mike LEAVITT Primary Care Provide r Unavailable Oswaldo Gil Jr Unavailable [phone] Mike Meadows MD Unavailable Unavailable Reason For Referral No Information Plan Of Treatment No Information Insurance Providers Payer Name Payer Address Payer Phone Subscriber Number Group Number Insured Name Patient Relationship to Insured Coverage Start Date Coverage End Date [place] OF [place] [address] [place] [id number] Self - patient is the insured MEDICAID OF [facility] [address] [place] [id number] Self - patient is the insured
--- OUTSIDE RECORDS SUMMARY | 2024-12-31 09:00 | XMS_ITS | Encounter Summary ---
Author Organization [facility] Address [address] [place] [address] Phone Care Team Providers Care Protective Services Social Worker Name Role Phone Jenny Arriaga MD Primary Care Provider [phone] Encounter Details Date Type Department Care Team (Late st Contact Info) Description 01/10/2017 Conversion Encounter [facility] [place] [address] [place] [address] Social History Tobacco Use Types Packs/Day Years Used Date Smoking Tobacco: Never Assessed Comments Unknown Sex and Gender Information Value Date Recorded Sex Assigned at Not on file Legal Sex Female 4:28 PM EDT Gender Identity Not on file Sexual Orientation Not on file documented as of this encounter Plan of Treatment Not on file documented as of this encounter Visit Diagnoses Not on filedocumented in this encounter Care Teams Protective Services Social Worker Relationship Specialty Start Date End Date Jenny Arriaga MD [address] [place] [address] PCP - General 01/04/17 08/26/22 documented as of this encounter
--- OUTSIDE RECORDS SUMMARY | 2024-12-31 09:00 | XMS_ITS | Clinical Summary ---
Author Organization [facility] Address [address] [place] [address] Care Team Providers Care Cigar Packer And Picker Name Role Phone Unavailable Primary Care Provider Unavailabl e Social History Tobacco Use Types Packs/Day Years Used Date Smoking Tobacco: Never Assessed Comments Unknown Sex and Gender Information Value Date Recorded Sex Assigned at Not on file Legal Sex Female 5:41 PM EST Gender Identity Not on file Sexual Orientation Not on file Plan of Treatment Health Maintenance Due Date Last Done Comments DTaP,Tdap,and Td Vaccines (1 - Tdap) 2009 Hepatitis B Vaccines (1 of 3 - 19+ 3-dose series) 2009 Cervical Cancer Screening: P ap Smear 11/06/2011 COVID-19 Vaccine ( - 2023-2 5 season) 2024 Depression Screening 05/27/2024 Influenza Vaccine (#1) 2025 HIB Vaccines Aged Out No longer eligi ble based on patient's age to complete this topic HPV Vaccines Aged Out No longer eligi ble based on patient's age to complete this topic Hepatitis A Vaccines Aged Out No long er eligible based on patient's age to complete this topic IPV Vaccines Aged Out No longer eligi ble based on patient's age to complete this topic MMR Vaccines Aged Out No longer eligi ble based on patient's age to complete this topic Meningococcal ACWY Vaccine Aged Out N o longer eligible based on patient's age to complete this topic Meningococcal B Vaccine Aged Out No l onger eligible based on patient's age to complete this topic Pneumococcal Vaccine: Pediat rics (0 to 5 Years) and At-Risk Patients (6 to 49 Years) Aged Out No longer eligible b ased on patient's age to complete this topic RSV Immunization Patients Un keenan 20 months Aged Out No longer eligible b ased on patient's age to complete this topic Varicella Vaccines Aged Out No longer eligible based on patient's age to complete this topic
== END 2024-12-31 09:01 | disposition home or self-care (01) ==
LOC: HO.HSM 08:44
PROVIDERS: PCP Internal Medicine; Visit Provider Registered Nurse
DX: G40.909 Epilepsy, unspecified, not intractable, without status epilepticus (principal); G43.009 Migraine without aura, not intractable, without status migrainosus
CPT/HCPCS: 99214

== ENCOUNTER → 2024-12-31 08:44 | Outpatient (BNVA) | payer OTHER, SELFPAY | PROVIDERS: PCP Internal Medicine; Visit Provider Registered Nurse | DX: G43.009 Migraine without aura, not intractable, without status migrainosus (principal) | CPT/HCPCS: 99212 ==

== ENCOUNTER 2025-05-06 07:50 | Outpatient (REF) | payer OTHER, SELFPAY ==
[2025-05-06 09:31] LABS: Hematocrit 39.6 % (37.0-47.0); Hemoglobin 12.4 g/dl (12.0-16.0); Mean Corpuscular HGB Conc 31.3 g/dl (31.0-35.0); Mean Corpuscular Hemoglobin 26.4 pg (27.0-33.0); Mean Corpuscular Volume 84.3 fL (80.0-98.0); NRBC Abs Auto 0.000 X10*3/uL (0.0-0.012); NRBC Pct Auto 0.0 /100WBC (0.0-0.2); Platelet Count 351 X10*3/uL (160-400); Red Blood Count 4.70 X10*6/uL (4.20-5.50); White Blood Count 9.0 X10*3/uL (4.8-10.8)
[2025-05-06 10:12] LABS: Alanine Aminotransferase 26 U/L (0-31); Albumin Level 4.3 g/dL (3.5-5.0); Alkaline Phosphatase 110 U/L (39-117); Anion Gap 9 (12-20); Aspartate Amino Transferase 21 U/L (5-31); Blood Urea Nitrogen 9 mg/dL (9-16); Calcium 9.1 mg/dL (8.4-10.2); Carbon Dioxide 29 mmol/L (22-29); Chloride 106 mmol/L (96-108); Cholesterol 162 mg/dL (<200); Estimated Glomerular Filt Rate > 60; HDL Cholesterol 35 mg/dL (>40); Potassium 4.1 mmol/L (3.3-5.1); Sodium 140 mmol/L (135-145); Total Protein 7.4 g/dL (6.5-8.0); Triglycerides 135 mg/dL (<150)
[2025-05-06 10:27] LABS: Thyroid Stimulating Hormone 1.20 uIU/mL (0.32-4.0)
[2025-05-06 12:15] LABS: Appearance Urine Clear; Glucose Urine UA Negative (Negative); PH 6.5 (5.0-9.0); Specific Gravity - Urine 1.015 (1.005-1.025)
== END 2025-05-06 07:51 | disposition home or self-care (01) ==
LOC: HO.LAB 07:50
PROVIDERS: PCP Internal Medicine; Visit Provider Internal Medicine
DX: Z00.00 Encounter for general adult medical examination without abnormal findings (principal); F41.8 Other specified anxiety disorders; Z13.31 Encounter for screening for depression; Z13.39 Encounter for screening examination for other mental health and behavioral disorders; G40.909 Epilepsy, unspecified, not intractable, without status epilepticus; Z13.6 Encounter for screening for cardiovascular disorders
CPT/HCPCS: 36415; 80048; 80061; 80076; 81003; 84443; 85027; 96127; 99395

== ENCOUNTER 2025-05-06 07:50 | Outpatient (AMB) | payer OTHER, SELFPAY ==
[2025-05-06 08:01] VITALS: BP 136/78; PULSE 105; O2SAT 98; BMI 67.3
--- NOTE | 2025-05-06 08:01 | A.OFFPC_ITS ---
Vital Signs 05/06/25 08:01 Height 5 ft 3 in Weight 380 lb BMI 67.3 BP 136/78 Blood Pressure Location Lt brachial Position Sitting Pulse 105 H Pulse Source Pulse Oximeter Pulse Oximetry (%) 98 Oxygen Delivery Method Room Air Intake Visit Reasons: Annual PE Allergies No Known Allergies (No Known Allergies*) Allergy (Verified 05/06/25 08:01) Tobacco use date assessed: 05/06/25 Dental Screening Dental Screen Date: 05/06/25 Did you have a dental visit in the last 12 months?: Yes Did you have a dental problem in the last 6 months where you did not have access to dental care?: No Was dental information given to patient?: Patient has dentist HPI HPI Comments History of Present Illness Details History of Present Illness - The patient is a 34 year old female pr esenting for a physical. - Her last visit was in September of the . - She has a history of epilepsy, for whi she takes Depakote twice daily and is followed by a nurse practitioner in neurology. - She considered bariatric surgery in past but did not proceed with it. - Her last blood work was some time ago but was noted to be fine. - She has received the COVID-19 vaccine but declines the flu shot. - Regarding exercise, she recently resum ed activity on the treadmill, which has caused some muscle soreness. - Her activity also includes taking the stairs as she lives on the third floor. Social History - Tobacco Use: Denies smoking. - Alcohol/Substance Use: Denies alcohol or drug use. - Living Situation: Lives alone and has no children. - Employment: Not currently working. - Functional Status: Drives a car and do es her own grocery shopping. - Nutrition: Reports wanting to learn to cook healthier meals with help from her aunt. - Exercise: Reports recently returning t o exercise, using a treadmill. - She also incorporates activity by darci ng the stairs to her third-floor apartment. Results - Labs: Previous blood work from some ti me ago was reportedly fine. [facility] Medical History (Updated 12/31/24 @ 08:55 by Brooklyn Grover CNP) Epilepsy, unspecified, intractable, with status epilepticus Obesity Seizure disorder Morbid obesity with BMI of 50.0-59.9, adult Cervical cancer screening declined Abnormal EEG Surgical History Hx of tonsillectomy H/O right knee surgery History of cholecystectomy Family History Paternal Uncle Heart disease Maternal Aunt Depression Other Diabetes mellitus FH: mental illness Substance abuse Social History Housing: House Alcohol intake: never Patient Tobacco Use Status: Never used Tobacco Tobacco use type: Cigarette e-Cigarette/Vaping Use: Never Used Second Hand Smoke Exposure: No Substance Use Type: Marijuana service: No Current occupational status: disabled Current occupational exposures/hazards: No Cognitive needs: No Hearing needs: No Vision needs: No Questionnaire PHQ-9 Over the last 2 weeks, how often have you been bothered by any of the following problems? 1. Little interest or pleasure in doing things: not at all 2. Feeling down, depressed, or hopeless: not at all 3. Trouble falling or staying asleep, or sleeping too much: not at all 4. Feeling tired or having little energy: not at all 5. Poor appetite or overeating: not at all 6. Feeling bad about yourself - or that you are a failure or have let yourself or your family down: not at all 7. Trouble concentrating on things, such as reading the newspaper or watching television: not at all 8. Moving or speaking so slowly that other people could have noticed. Or the opposite - being so fidgety or restless that you have been moving around a lot more than usual: not at all 9. Thoughts that you would be better off or of hurting yourself in some way: not at all Total score: 0 Source: Developed by Drs. Chad Gutierrez, Luda Smith, Johnathan Galeas and colleagues, with an educational alberto from [employer]. Thrive Questionnaire Date Thrive assessed: 04/29/25 I am a: Patient What is your living situation today?: I have a steady place to live Within the past 12 months, did the food you bought not last and you didn't have the money to get more?: I choose not to answer this question Within the past 12 months, did you worry whether your food would run out before you got money to buy more?: I choose not to answer this question Do you have trouble paying for medicines?: I choose not to answer this question Do you have trouble getting transportation to medical appointments?: No Do you have trouble paying your heating and electricity bill?: No Do you have trouble taking care of your child, family member or friend?: No Do you have trouble with day-to-day activities such as bathing, preparing meals, shopping, managing finances, etc.?: I choose not to answer this question Are you currently unemployed and looking for a job?: I choose not to answer this question Are you interested in more education?: I choose not to answer this question Please select the resources that you would like help with: None Currently or been in a relationship where the following occur: I choose not to answer THRIVE Score: 0 AUDIT C Alcohol Use Questionnaire (AUDIT-C) 1. How often do you have a drink containing alcohol?: Never 3. How often do you have six or more drinks on one occasion?: Never Total Score: 0 GABRIELA-7 AMB Questionnaire GABRIELA-7 Date GABRIELA - 7 assessed: 05/06/25 Feeling nervous, anxious, or on edge: 0 = Not at all Not being able to stop or control worryin = Not at all Worrying too much about different things: 0 = Not at all Trouble relaxin = Not at all Being so restless that it is hard to sit still: 0 = Not at all Becoming easily annoyed or irritable: 0 = Not at all Feeling afraid as if something awful might happen: 0 = Not at all Total GABRIELA-7 score (0-4 normal; 5-9 mild; 10-14 moderate; 15-21 severe): 0 Source: Developed by Drs. Chad Gutierrez, Luda Smith, Johnathan Galeas and colleagues, with an educational alberto from [employer]. Review of Systems Narrative Review of Systems - General: Denies pain. - Musculoskeletal: Reports mild muscle soreness after recently resuming exercise. Physical exam (Primary Care) Vital Signs: Last Vital Signs Pulse 105 H 05/06/25 08:01 BP 136/78 05/06/25 08:01 Pulse Ox 98 05/06/25 08:01 Oxygen Delivery Method Room Air 05/06/25 08:01 BMI result Body Mass Index 67.3 Tobacco/Smoking Status: Tobacco use Status Tobacco use date assessed 05/06/25 05/06/25 08:05 Patient Tobacco Use Status Never used Tobacco 05/06/25 08:05 Tobacco use type Cigarette 05/06/25 08:05 e-Cigarette/Vaping Use Never Used 05/06/25 08:05 PHQ-9: PHQ-9 Score PHQ-9: Total score 0 05/06/25 08:05 Thrive Assessment: Date of Thrive Assessment Date Thrive assessed 04/29/25 05/06/25 08:05 Currently or been in a relationship where the following occur: I choose not to answer Narrative Physical Exam General: Appearance normal, both eyes and all related structures Nutritional Appearance: Well nourished Orientation/consciousness: Patient oriented x3 Limitations: No limitations Head: Normal to inspection Neck: Normal visual inspection Chest: Normal palpation of entire chest wall Respiratory: Normal respiratory effort Neurology: Patient oriented x3, on Depakote for epilepsy Coding Level of Care Code Est Pt Prev Care [id number]) Add On Preventative Visit Only Diagnoses Encounter for annual physical exam Z00.00 Anxiety with depression F41.8 Assessment & Plan Assessment & Plan (1) Encounter for annual physical exam: Code(s): Z00.00 - Encounter for general adult medical examination without abnormal findings (2) Anxiety with depression: Code(s): F41.8 - Other specified anxiety disorders Category: Medical Plan Plan - Will order fasting blood work, including a cholesterol panel. - The patient intends to schedule an appointment with behavioral health. - Advised to follow up in one year. - The patient was informed that the flu shot is her choice. Discussion Notes I advised the patient that we would repeat her blood work, specifically to check her fasting cholesterol. We discussed her recent return to exercise and her plan to learn how to cook healthier meals. The patient plans to schedule her own appointment with behavioral health. Regarding immunizations, the patient declined the flu shot, and I affirmed it was her choice, noting she had received the COVID-19 vaccine. I recommended she return for a follow-up visit in one year. Patient Instructions - Please go to the lab to have your blood drawn. - You should not eat or drink anything (except water) for at least 8 hours before the test. - You should make an appointment to see someone in behavioral health. - Keep up with your exercise routine, such as using the treadmill and taking the stairs. - You have received the COVID-19 vaccine. - Getting a flu shot is your choice. - Please schedule a follow-up appointment in one year. Orders: Orders Complete Blood Count no Diff Today F41.8 - Other specified anxiety disorders Liver Panel Today F41.8 - Other specified anxiety disorders Thyroid Stimulating Hormone Today F41.8 - Other specified anxiety disorders Basic Metabolic Panel Today F41.8 - Other specified anxiety disorders Lipid Panel Today F41.8 - Other specified anxiety disorders UA and rflx microscopic Today F41.8 - Other specified anxiety disorders
== END 2025-05-06 08:18 | disposition home or self-care (01) ==
LOC: HO.HMCH 07:50
PROVIDERS: PCP Internal Medicine; Visit Provider Internal Medicine
DX: Z00.00 Encounter for general adult medical examination without abnormal findings (principal); F41.8 Other specified anxiety disorders